=== PATIENT | female | born 1985 | race Two or more races ===

== ENCOUNTER 2020-10-26 20:10 | Inpatient (IN) | payer MEDICAID ==
[2020-10-26] MEDS ORDERED: Lactated Ringers 1,000 ML IV ONE ×2 (20:22→21:09)
[2020-10-26] MEDS ORDERED: HYDROmorphone 0.5 MG/0.5 ML Syringe IVPUSH ONE ×2 (20:23→22:05)
[2020-10-26] MEDS ORDERED: Ondansetron 4 MG/2 ML SDV IVPUSH ONE (20:23)
[2020-10-26] MEDS ORDERED: Acetaminophen 650 MG Supp RECTAL ONE (20:24)
--- NOTE | 2020-10-26 20:30 | EDM.PDOC ---
ED HPI GENERAL MEDICAL PROBLEM - General Chief Complaint: Abdominal Pain Stated Complaint: [facility] Time Seen by Provider: 10/26/20 20:15 Source of Information: Reports: Patient, EMS, Old Records History Limitations: Reports: No Limitations - History of Present Illness INITIAL COMMENTS - FREE TEXT/NARRATIVE: 35 yo , non-Syriac speaking female presents via EMS with RLQ abdominal pain, fever, and vomiting. Was seen in the [facility] on 10/19 for what is presumed to be the beginning of this illness. Her work up that day including blood work was negative. She was given amoxicillin per patient for "a fever". When EMS arrived she was with 4 minor children and no other adults. She went back to the clinic today and her WBC ct had risen to 13K and her temp was 101.7F. An abdominal X-ray was negative. A strep test today was positive. Covid vaccine on 10/15. Negative Covid in clinic today. Onset: Gradual, Unknown/Unsure Duration: Day(s):, Getting Worse Location: Reports: Abdomen Quality: Reports: Ache Severity: Severe Improves with: Reports: None Worsens with: Reports: Other (time) Context: Reports: Other (See HPI) Associated Symptoms: Reports: Fever/Chills, Nausea/Vomiting Treatments TIER OVER: Reports: Other (see below) (amox) RLQ Pain Score (Numeric/FACES): 10 - Related Data Allergies Allergy/AdvReac Type Severity Reaction Status Date / Time aspirin Allergy Rash Verified 10/26/20 21:01 Penicillins Allergy Other Verified 10/26/20 21:01 Home Meds: Home Meds Amoxicillin 500 mg PO BID 10/26/20 [History] Ferrous Sulfate [Iron] 325 mg PO BID 10/26/20 [History] norethindrone ac-eth estradioL [Bhavin 21 1-20 Tablet] 1 tab PO DAILY 10/26/20 [History] ED ROS GENERAL - Review of Systems Review Of Systems: See Below Constitutional: Reports: Fever, Chills HEENT: Reports: No Symptoms Respiratory: Reports: No Symptoms Cardiovascular: Reports: No Symptoms GI/Abdominal: Reports: Abdominal Pain, Anorexia, Nausea, Vomiting. Denies: Black Stool, Bloody Stool, Constipation, Diarrhea, Distension, Hematemesis, Melena : Reports: No Symptoms Musculoskeletal: Reports: No Symptoms Skin: Reports: No Symptoms Neurological: Reports: No Symptoms ED EXAM, GI/ABD - Physical Exam Exam: See Below Exam Limited By: No Limitations General Appearance: Alert, Moderate Distress Eyes: Bilateral: Normal Appearance Ears: Normal External Exam, Normal Canal, Hearing Grossly Normal Nose: Normal Inspection, No Blood Throat/Mouth: Normal Inspection, Normal Lips, Normal Oropharynx, Normal Voice, No Airway Compromise Head: Atraumatic, Normocephalic Neck: Normal Inspection Respiratory/Chest: No Respiratory Distress, Lungs Clear, Normal Breath Sounds, No Accessory Muscle Use Cardiovascular: Regular Rate, Rhythm, No Edema, Tachycardia GI/Abdominal Exam: Soft, No Distention, Tender (RLQ), Abnormal Bowel Sounds (decreased). No: Normal Bowel Sounds, Non-Tender, Distended Extremities: Normal Inspection, Normal Range of Motion, Non-Tender, No Pedal Edema Neurological: Alert, Oriented, CN II-XII Intact, Normal Cognition, No Motor/Sensory Deficits Psychiatric: Normal Affect, Normal Mood Skin Exam: Warm, Dry, Intact, Normal Color, No Rash Course - Vital Signs Text/Narrative:: Dr. Quarles called @ 2307h Last Recorded V/S: Last Vital Signs Temp 38.3 C H 10/26/20 22:33 Pulse 97 10/26/20 22:59 Resp 20 10/26/20 22:59 BP 104/50 L 10/26/20 22:59 Pulse Ox 99 10/26/20 22:59 - Orders/Labs/Meds Orders: Active Orders 24 hr Category Date Time Status Cardiac Monitoring [RC] .As Directed Care 10/26/20 20:24 Active Chest 1V Frontal [CR] Stat Exams 10/26/20 22:52 Ordered CULTURE BLOOD [BC] Stat Lab 10/26/20 20:32 Received CULTURE BLOOD [BC] Stat Lab 10/26/20 20:51 Received REFLEX LACTIC ACID YES OR NO [CHEM] Routine Lab 10/26/20 20:50 Received Sodium Chloride 0.9% [Normal Saline] 1,000 ml Med 10/26/20 23:15 Ordered IV ASDIRECTED Sodium Chloride 0.9% [Normal Saline] 70 ml Med 10/26/20 21:45 Active IV ASDIRECTED cefTRIAXone [Rocephin] 1 gm Med 10/26/20 23:08 Ordered Sodium Chloride 0.9% [Normal Saline] 50 ml IV ONETIME Medication Orders Sodium Chloride (Normal Saline) 70 mls @ 3.5 mls/sec IV ASDIRECTED [facility] Last Admin: 10/26/20 22:22 Dose: 3 mls/sec Documented by: MELANIA Ceftriaxone Sodium 1 gm/ (Sodium Chloride) 50 mls @ 100 mls/hr IV ONETIME ONE Stop: 10/26/20 23:37 Sodium Chloride (Normal Saline) 1,000 mls @ 150 mls/hr IV ASDIRECTED [facility] Labs: Laboratory Tests 10/26/20 10/26/20 10/26/20 Range/Units 20:22 20:22 20:40 WBC 14.7 H (4.5-11.0) K/uL RBC 4.70 (3.30-5.50) M/uL Hgb 11.5 L (12.0-15.0) g/dL Hct 35.4 L (36.0-48.0) % MCV 75 L (80-98) fL MCH 25 L (27-31) pg MCHC 33 (32-36) % Plt Count 251 (150-400) K/uL Sodium 140 (140-148) mmol/L Potassium 3.8 (3.6-5.2) mmol/L Chloride 102 (100-108) mmol/L Carbon Dioxide 22 (21-32) mmol/L Anion Gap 16.0 H (5.0-14.0) mmol/L BUN 14 (7-18) mg/dL Creatinine 1.2 H (0.6-1.0) mg/dL Est Cr Clr Drug Dosing 46.55 mL/min Estimated GFR (MDRD) 51 L (>60) Glucose 136 H (74-106) mg/dL Lactic Acid (0.4-2.0) mmol/L Calcium 9.1 (8.5-10.1) mg/dL Total Bilirubin 0.4 (0.2-1.0) mg/dL AST 15 (15-37) U/L ALT 26 (12-78) U/L Alkaline Phosphatase 87 (46-116) U/L Total Protein 7.7 (6.4-8.2) g/dL Albumin 3.7 (3.4-5.0) g/dL Globulin 4.0 H (2.3-3.5) g/dL Albumin/Globulin Ratio 0.9 L (1.2-2.2) HCG, Qual Negative Urine Color (YELLOW) Urine Appearance (CLEAR) Urine pH (5.0-8.0) Ur Specific [place] (1.008-1.030) Urine Protein (NEGATIVE) mg/dL Urine Glucose (UA) (NEGATIVE) mg/dL Urine Ketones (NEGATIVE) mg/dL Urine Occult Blood (NEGATIVE) Urine Nitrite (NEGATIVE) Urine Bilirubin (NEGATIVE) Urine Urobilinogen (0.2-1.0) EU/dL Ur Leukocyte Esterase (NEGATIVE) Urine RBC (0-5) Urine WBC (0-5) Ur Epithelial Cells Amorphous Sediment Urine Bacteria Urine Mucus 10/26/20 10/26/20 Range/Units 20:49 22:17 WBC (4.5-11.0) K/uL RBC (3.30-5.50) M/uL Hgb (12.0-15.0) g/dL Hct (36.0-48.0) % MCV (80-98) fL MCH (27-31) pg MCHC (32-36) % Plt Count (150-400) K/uL Sodium (140-148) mmol/L Potassium (3.6-5.2) mmol/L Chloride (100-108) mmol/L Carbon Dioxide (21-32) mmol/L Anion Gap (5.0-14.0) mmol/L BUN (7-18) mg/dL Creatinine (0.6-1.0) mg/dL Est Cr Clr Drug Dosing mL/min Estimated GFR (MDRD) (>60) Glucose (74-106) mg/dL Lactic Acid 3.9 H (0.4-2.0) mmol/L Calcium (8.5-10.1) mg/dL Total Bilirubin (0.2-1.0) mg/dL AST (15-37) U/L ALT (12-78) U/L Alkaline Phosphatase (46-116) U/L Total Protein (6.4-8.2) g/dL Albumin (3.4-5.0) g/dL Globulin (2.3-3.5) g/dL Albumin/Globulin Ratio (1.2-2.2) HCG, Qual Urine Color Yellow (YELLOW) Urine Appearance Clear (CLEAR) Urine pH 8.5 H (5.0-8.0) Ur Specific [place] 1.020 (1.008-1.030) Urine Protein Negative (NEGATIVE) mg/dL Urine Glucose (UA) Negative (NEGATIVE) mg/dL Urine Ketones Negative (NEGATIVE) mg/dL Urine Occult Blood Negative (NEGATIVE) Urine Nitrite Negative (NEGATIVE) Urine Bilirubin Negative (NEGATIVE) Urine Urobilinogen 0.2 (0.2-1.0) EU/dL Ur Leukocyte Esterase Negative (NEGATIVE) Urine RBC 0-5 (0-5) Urine WBC 0-5 (0-5) Ur Epithelial Cells Few Amorphous Sediment Not seen Urine Bacteria Moderate Urine Mucus Not seen Meds: Medications Generic Name Dose Route Start Last Admin Trade Name Freq PRN Reason Stop Dose Admin Sodium Chloride 70 mls @ 3.5 mls/sec 10/26/20 21:45 10/26/20 22:22 Normal Saline IV 3 mls/sec ASDIRECTED LIOR Administration Ceftriaxone Sodium 1 gm/ 50 mls @ 100 mls/hr 10/26/20 23:08 Sodium Chloride IV 10/26/20 23:37 ONETIME ONE Sodium Chloride 1,000 mls @ 150 mls/hr 10/26/20 23:15 Normal Saline IV ASDIRECTED LIOR Discontinued Medications Generic Name Dose Route Start Last Admin Trade Name Freq PRN Reason Stop Dose Admin Acetaminophen 650 mg 10/26/20 20:24 10/26/20 22:04 Acetaminophen 650 Mg Supp RECTAL 10/26/20 20:25 650 mg NOW ONE Administration Hydromorphone HCl 0.5 mg 10/26/20 20:23 10/26/20 22:04 Hydromorphone 0.5 Mg/0.5 Ml Syringe IVPUSH 10/26/20 20:24 0.5 mg ONETIME ONE Administration Hydromorphone HCl 0.5 mg 10/26/20 22:05 10/26/20 22:18 Hydromorphone 0.5 Mg/0.5 Ml Syringe IVPUSH 10/26/20 22:06 0.5 mg ONETIME ONE Administration Lactated Ringer's 1,000 mls @ 1,000 mls/hr 10/26/20 20:22 10/26/20 20:20 Ringers, Lactated IV 10/26/20 21:21 1,000 mls/hr BOLUS ONE Administration Lactated Ringer's 1,000 mls @ 1,000 mls/hr 10/26/20 21:09 10/26/20 22:09 Ringers, Lactated IV 10/26/20 22:08 1,000 mls/hr BOLUS ONE Administration Iopamidol 72 ml 10/26/20 21:37 10/26/20 22:22 Iopamidol 612 Mg/Ml 500 Ml Multipack Bottle IV 10/26/20 21:38 72 ml ONETIME ONE Administration Ondansetron HCl 4 mg 10/26/20 20:23 10/26/20 22:04 Ondansetron 4 Mg/2 Ml Sdv IVPUSH 10/26/20 20:24 4 mg ONETIME ONE Administration Sodium Chloride 10 ml 10/26/20 21:37 10/26/20 22:22 Sodium Chloride 0.9% 10 Ml Syringe FLUSH 10/26/20 21:38 10 ml ONETIME ONE Administration - Radiology Interpretation Free Text/Narrative:: CT abd/pelvis with IV contrast- IMPRESSION: Nothing seen to explain the patient`s right lower quadrant pain and elevated white blood cell count. The fluid-filled appendix is normal in appearance with no sign of dilatation and no sign of any periappendiceal inflammatory reaction. Normal CT of the abdomen with contrast. CT of the pelvis shows heterogeneous low density scattered throughout the mildly enlarged uterus consistent with diffuse fibroid degeneration. Small coarse calcification of the left tip of the fundus. Small amount of free fluid in the cul-de-sac on the right, nonspecific. Please note that all CT scans at this facility use dose modulation, iterative reconstruction, and/or weight-based dosing when appropriate to reduce radiation dose to as low as reasonably achievable. Dictated by Rehan Wade MD @ 10/26/2020 10:50:35 PM CXR-neg CT Results Date: 10/26/20 CT Results Time: 22:52 Departure - Departure Time of Disposition: 23:20 Disposition: Admitted As Inpatient 65 Condition: Serious Clinical Impression: Elevated lactic acid level, RLQ abdominal pain Fever Qualifiers: Fever type: unspecified Qualified Code(s): R50.9 - Fever, unspecified Elevated WBC count Qualifiers: Leukocytosis type: unspecified Qualified Code(s): D72.829 - Elevated white blood cell count, unspecified - Discharge Information *PRESCRIPTION DRUG MONITORING PROGRAM REVIEWED*: Not Applicable *COPY OF PRESCRIPTION DRUG MONITORING REPORT IN PATIENT KATHIE: Not Applicable Referrals: PCP,None [Primary Care Provider] - Forms: ED Department Discharge Sepsis Event Note (ED) - Focused Exam Vital Signs: Vital Signs Temp Pulse Resp BP Pulse Ox 10/26/20 22:59 97 20 104/50 L 99 10/26/20 22:33 38.3 C H 106 H 20 117/74 98 10/26/20 22:07 38.8 C H 109 H 16 100/55 L 97 10/26/20 21:12 113 H 13 111/68 99 10/26/20 21:05 38.4 C H 145 H 15 142/79 H 100 10/26/20 20:42 126 H 14 108/71 99 10/26/20 20:19 38.4 C H 145 H 15 142/79 H 100 - My Orders Last 24 Hours: My Active Orders 10/26/20 20:24 Cardiac Monitoring [RC] .As Directed 10/26/20 20:32 CULTURE BLOOD [BC] Stat 10/26/20 20:50 REFLEX LACTIC ACID YES OR NO [CHEM] Routine 10/26/20 20:51 CULTURE BLOOD [BC] Stat 10/26/20 21:45 Sodium Chloride 0.9% [Normal Saline] 70 ml IV ASDIRECTED 10/26/20 22:52 Chest 1V Frontal [CR] Stat 10/26/20 23:08 cefTRIAXone [Rocephin] 1 gm Sodium Chloride 0.9% [Normal Saline] 50 ml IV ONETIME 10/26/20 23:15 Sodium Chloride 0.9% [Normal Saline] 1,000 ml IV ASDIRECTED - Assessment/Plan Last 24 Hours: My Active Orders 10/26/20 20:24 Cardiac Monitoring [RC] .As Directed 10/26/20 20:32 CULTURE BLOOD [BC] Stat 10/26/20 20:50 REFLEX LACTIC ACID YES OR NO [CHEM] Routine 10/26/20 20:51 CULTURE BLOOD [BC] Stat 10/26/20 21:45 Sodium Chloride 0.9% [Normal Saline] 70 ml IV ASDIRECTED 10/26/20 22:52 Chest 1V Frontal [CR] Stat 10/26/20 23:08 cefTRIAXone [Rocephin] 1 gm Sodium Chloride 0.9% [Normal Saline] 50 ml IV ONETIME 10/26/20 23:15 Sodium Chloride 0.9% [Normal Saline] 1,000 ml IV ASDIRECTED
[2020-10-26] MEDS ORDERED: Sodium Chloride 0.9% 10 ML Syringe FLUSH ONE (21:37)
[2020-10-26] MEDS ORDERED: Iopamidol 612 MG/ML 500 ML Multipack Bottle IV ONE (21:37)
--- NOTE | 2020-10-26 22:52 | CRLCT ---
INDICATION: Right lower quadrant pain. Elevated white blood cell count. COMPARISON: None available TECHNIQUE: CT examination of the abdomen and pelvis was performed with the uneventful intravenous administration of 72 cc of Isovue-300 while 3 mm thick axial sections were obtained from the lung bases through the pubic symphysis. Oral contrast was not administered. Please note that all CT scans at this facility use dose modulation, iterative reconstruction, and/or weight-based dosing when appropriate to reduce radiation dose to as low as reasonably achievable. FINDINGS: In the abdomen, the liver, spleen, pancreas, and adrenals are normal in appearance. The kidneys are normal in appearance. The gallbladder is normal in appearance. The abdominal aorta is normal in caliber with no sign of dilatation. There is no sign of retroperitoneal mass or adenopathy. The stomach, loops of small bowel, and colon in the abdomen are normal in appearance. In the pelvis, the fluid-filled appendix is normal in appearance with no sign of inflammatory process. It measures 5 millimeters in caliber and there is no sign of any periappendiceal inflammatory reaction. The loops of small bowel and colon in the pelvis are normal in appearance. The uterus is heterogeneous in density with a coarse calcification in the anterior left distal fundus, findings consistent with fibroid degeneration. The uterus is mildly enlarged, measuring 11.3 x 5.3 x 5.4 centimeters. The ovaries are normal in appearance. There is a small amount of free fluid in the cul-de-sac on the right, nonspecific. The urinary bladder is normal in appearance. There is no sign of pelvic or inguinal mass or adenopathy. There is no sign of free air or free fluid in the abdomen. There is no sign of free air or extraluminal air in the pelvis. There is mild patchy density in the posterior lung bases consistent with atelectasis. The lung bases are otherwise clear. The osseous structures are normal in appearance for the patient`s age. IMPRESSION: Nothing seen to explain the patient`s right lower quadrant pain and elevated white blood cell count. The fluid-filled appendix is normal in appearance with no sign of dilatation and no sign of any periappendiceal inflammatory reaction. Normal CT of the abdomen with contrast. CT of the pelvis shows heterogeneous low density scattered throughout the mildly enlarged uterus consistent with diffuse fibroid degeneration. Small coarse calcification of the left tip of the fundus. Small amount of free fluid in the cul-de-sac on the right, nonspecific. Please note that all CT scans at this facility use dose modulation, iterative reconstruction, and/or weight-based dosing when appropriate to reduce radiation dose to as low as reasonably achievable. Dictated by Rehan Wade MD @ 10/26/2020 10:50:[address] Rehan Wade @ Oct 26 2020 10:50PM
[2020-10-26] MEDS ORDERED: cefTRIAXone 1 GM in Sodium Chloride 0.9% 50 ML IV ONE (23:08)
[2020-10-26] MEDS ORDERED: Sodium Chloride 0.9% 1,000 ML IV SCH (23:15)
--- NOTE | 2020-10-26 23:34 | CRLCR ---
INDICATION: Sepsis TECHNIQUE: Portable semiupright AP view of the chest COMPARISON: None FINDINGS: The lungs are clear. There is no sizable pleural effusion or pneumothorax. The cardiomediastinal silhouette is normal. The visualized osseous structures are unremarkable. IMPRESSION: No acute intrathoracic process. Dictated by Betty Gordon MD @ 10/26/2020 11:32:[address] Betty Gordon @ Oct 26 2020 11:32PM
[2020-10-27] MEDS: Ketorolac 30 MG/ML SDV IVPUSH PRN ×2 (01:10→11:21)
[2020-10-27] MEDS ORDERED: Azithromycin 250 MG Tab PO ONE (01:14)
[2020-10-27] MEDS ORDERED: Sodium Chloride 0.9% 1,000 ML IV SCH (03:45)
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
--- NOTE | 2020-10-27 06:27 | PN ---
DATE OF SERVICE: 10/27/2020 SUBJECTIVE: A 35-year-old, multigravid female was admitted in the late evening hours yesterday with a day long history of abdominal pain as well as noted febrile presentation. Through the nighttime hours, IV antibiotics, fluid hydration, and IV Toradol, was admitted for management of presumptive pelvic infection and accompanying fever. She is resting comfortably. Denying current abdominal pain. She is taking sips of water well. She has had no further complaints of nausea. Voiding with increased frequency secondary to IV fluids. OBJECTIVE: VITAL SIGNS: Temperature now 37.2 degrees centigrade, pulse 114, blood pressure 119/66, respiratory rate 20, with O2 saturations 98% on room air. Output 1000 mL, intake 120 oral intake plus IV fluids. ABDOMEN: Remains nondistended without peritoneal signs. Moderately tender to deep palpation in the right lower quadrant. She has active bowel sounds. SKIN: Warm, pink, and dry. LABORATORY DATA: Blood and pelvic cultures are pending at this point. IMPRESSION AND PLAN: Febrile presentation with right lower quadrant abdominal pain, suspect pelvic inflammatory disease. We will continue with IV fluids, dietary intake as tolerated, and antibiotic therapy for both gram-negative as well as chlamydial and GC organisms. Does have Toradol available for p.r.n. use. Allow voiding as required. Activity with standby assistance with IV parenteral therapy being administered. Continue to monitor in inpatient setting. Sudhir Quarles MD /[id number]
[2020-10-27] MEDS ORDERED: Azithromycin 250 MG Tab PO SCH ×2 (09:00→21:00)
[2020-10-27] MEDS: cefOXitin 2 GM in Sodium Chloride 0.9% 50 ML IV SCH ×2 (10:30→18:34)
[2020-10-27] MEDS: Acetaminophen 325 MG Tab PO PRN ×2 (14:16→20:32)
[2020-10-28] MEDS ORDERED: cefOXitin 2 GM in Sodium Chloride 0.9% 50 ML IV SCH (00:45)
[2020-10-28] MEDS: Ketorolac 30 MG/ML SDV IVPUSH PRN (02:49)
[2020-10-28] MEDS: Acetaminophen 325 MG Tab PO PRN (02:49)
[2020-10-28] MEDS: cefOXitin 2 GM in Sodium Chloride 0.9% 50 ML IV SCH ×2 (02:49→10:11)
[2020-10-28] MEDS ORDERED: Azithromycin 250 MG Tab PO SCH (09:00)
[2020-10-28 10:01] VITALS: BP 99/57; PULSE 72
--- NOTE | 2020-10-28 11:39 | PCM.DCSUM1 ---
Discharge Summary - Hospital Course Brief History: Healthy 35-year-old female who presented with several days of worsening lower abdominal pain and fever. She is admitted for management of presumed pelvic inflammatory disease. Diagnosis: Stroke: No - Discharge Data Discharge Date: 10/28/20 Discharge Disposition: Home, Self-Care 01 Condition: Good - Referral to Home Health Primary Care Physician: PCP None - Discharge Diagnosis/Problem(s) (1) Pelvic inflammatory disease SNOMED Code(s): 478972828 ICD Code: N73.9 - FEMALE PELVIC INFLAMMATORY DISEASE, UNSPECIFIED Status: Acute Current Visit: Yes - Patient Summary/Data Hospital Course: [place] presented to the emergency room with fever, lower abdominal pain and nausea. In the emergency room she had fever, tachycardia and lactic acidosis consistent with sepsis. CT scan of the abdomen and pelvis was unremarkable. The patient did receive IV fluids and broad-spectrum antibiotics to cover abdominal organisms. The patient was admitted to the hospital. At the time of hospital admission a pelvic exam was performed. There was a fair amount of adnexal tenderness and pelvic inflammatory disease was suspected. Antibiotics were transitioned to a azithromycin and cefoxitin. She received IV fluids overnight. Her lactic acidosis normalized quickly with treatment provided in the emergency room in the early portion of the hospital stay. We have seen steady improvement in both her fever curve as well as her abdominal pain. She has been tolerating a regular diet. Pain has been controlled with combination of acetaminophen and Toradol. Her blood cultures have been negative. We are still waiting for the gonococcal and chlamydial test to return and that may be several days yet. Anaerobic cultures are pending at this time as well but there is been no growth to date. Patient feels well and is interested in going home. My suspicion for pelvic inflammatory disease is high enough that we will continue to treat this after hospital discharge. She will be on doxycycline and metronidazole for a total of 11 days to complete a total of 2 weeks of treatment when hospital antibiotic days are included. She will be following up with her primary care early next week. - Patient Instructions Diet: Regular Diet as Tolerated Activity: As Tolerated Activity, Other: Return to work without restrictions on 11/01/20 Showering/Bathing: May Shower Notify Provider of: Fever, Increased Pain Other/Special Instructions: 1. You were in the hospital for management of pelvic inflammatory disease which is an infection of your reproductive organs and genital tract. We did not determine a causative bacteria as of yet. Your condition is improving with antibiotic therapy. I do recommend additional antibiotic therapy after hospital discharge to complete treatment for the infection. Please take both doxycycline 100 mg and metronidazole 500 mg twice daily with food for 10 days. Your first dose outside of the hospital will be due tonight. To help control your pain you can use acetaminophen 650 mg every 4 hours or ibuprofen 600 mg every 6 hours. You may alternate these medications to provide overlapping pain coverage. 2. Please follow-up in the clinic next week to ensure that your condition continues to improve or sooner if your symptoms worsen prior to that. - Discharge Plan *PRESCRIPTION DRUG MONITORING PROGRAM REVIEWED*: Not Applicable *COPY OF PRESCRIPTION DRUG MONITORING REPORT IN PATIENT KATHIE: Not Applicable Prescriptions/Med Rec: Doxycycline Monohydrate 100 mg PO BID #21 capsule metroNIDAZOLE [Metronidazole] 500 mg PO BID #21 tablet Home Medications: Home Meds Amoxicillin 500 mg PO BID 10/26/20 [History] Ferrous Sulfate [Iron] 325 mg PO BID 10/26/20 [History] norethindrone ac-eth estradioL [Bhavin 21 1-20 Tablet] 1 tab PO DAILY 10/26/20 [History] Doxycycline Monohydrate 100 mg PO BID #21 capsule 10/28/20 [Rx] metroNIDAZOLE [Metronidazole] 500 mg PO BID #21 tablet 10/28/20 [Rx] Oxygen Therapy Mode: Room Air Patient Handouts: Pelvic Inflammatory Disease, [id number] Referrals: Karli Montes CNM [[facility]] - 11/05/20 (Follow-up hospital stay for pelvic pain with fever) - Discharge Summary/Plan Comment DC Time >30 min.: No - Patient Data Vitals - Most Recent: Last Vital Signs Temp 35.3 C L 10/28/20 07:00 Pulse 72 10/28/20 07:00 Resp 18 10/28/20 07:00 BP 99/57 L 10/28/20 07:00 Pulse Ox 98 10/28/20 03:00 Weight - Most Recent: 47.627 kg I&O - Last 24 hours: Intake & Output 10/27/20 10/28/20 10/28/20 22:59 06:59 14:59 Intake Total 1490 Output Total 525 Balance 965 Lab Results - Last 24 hrs: Laboratory Results - last 24 hr 10/28/20 10/28/20 10/28/20 Range/Units 05:30 05:30 05:30 WBC 12.9 H (4.5-11.0) K/uL RBC 4.23 (3.30-5.50) M/uL Hgb 9.9 L (12.0-15.0) g/dL Hct 32.7 L (36.0-48.0) % MCV 77 L (80-98) fL MCH 23 L (27-31) pg MCHC 30 L (32-36) % Plt Count 173 (150-400) K/uL Sodium 143 (140-148) mmol/L Potassium 4.1 (3.6-5.2) mmol/L Chloride 105 (100-108) mmol/L Carbon Dioxide 27 (21-32) mmol/L Anion Gap 11.1 (5.0-14.0) mmol/L BUN 8 (7-18) mg/dL Creatinine 0.9 (0.6-1.0) mg/dL Est Cr Clr Drug Dosing 62.07 mL/min Estimated GFR (MDRD) > 60 (>60) Glucose 99 (74-106) mg/dL Calcium 8.4 L (8.5-10.1) mg/dL HCG, Quant 0 (0-6) mIU/mL KENNY Results - Last 24 hrs: Microbiology 10/27/20 01:06 Anaerobic Culture - Preliminary Uterus - Other 10/26/20 20:51 Aerobic Blood Culture - Preliminary Blood - Arm, Right NO GROWTH AFTER 1 DAY Anaerobic Blood Culture - Preliminary NO GROWTH AFTER 1 DAY 10/26/20 20:32 Aerobic Blood Culture - Preliminary Blood - Arm, Right NO GROWTH AFTER 1 DAY Anaerobic Blood Culture - Preliminary NO GROWTH AFTER 1 DAY Med Orders - Current: Current Medications Acetaminophen (Acetaminophen 325 Mg Tab) 650 mg PO Q4H PRN PRN Reason: Fever Last Admin: 10/28/20 02:49 Dose: 650 mg Documented by: Azithromycin (Azithromycin 250 Mg Tab) 250 mg PO BEDTIME LIOR Stop: 11/01/20 21:01 Last Admin: 10/27/20 20:33 Dose: 250 mg Documented by: Cefoxitin Sodium 2 gm/ Sodium (Chloride) 50 mls @ 100 mls/hr IV Q8H LIOR Last Admin: 10/28/20 10:11 Dose: 100 mls/hr Documented by: Ketorolac Tromethamine (Ketorolac 30 Mg/Ml Sdv) 30 mg IVPUSH Q6H PRN PRN Reason: Pain Stop: 11/01/20 00:44 Last Admin: 10/28/20 02:49 Dose: 30 mg Documented by: Discontinued Medications Acetaminophen (Acetaminophen 650 Mg Supp) 650 mg RECTAL NOW ONE Stop: 10/26/20 20:25 Last Admin: 10/26/20 22:04 Dose: 650 mg Documented by: Azithromycin (Azithromycin 250 Mg Tab) 250 mg PO DAILY LIOR Stop: 11/02/20 09:01 Azithromycin (Azithromycin 250 Mg Tab) 500 mg PO DAILY LIOR Stop: 10/27/20 09:01 Azithromycin (Azithromycin 250 Mg Tab) 500 mg PO ONETIME ONE Stop: 10/27/20 01:15 Last Admin: 10/27/20 01:33 Dose: 500 mg Documented by: Hydromorphone HCl (Hydromorphone 0.5 Mg/0.5 Ml Syringe) 0.5 mg IVPUSH ONETIME ONE Stop: 10/26/20 20:24 Last Admin: 10/26/20 22:04 Dose: 0.5 mg Documented by: Hydromorphone HCl (Hydromorphone 0.5 Mg/0.5 Ml Syringe) 0.5 mg IVPUSH ONETIME ONE Stop: 10/26/20 22:06 Last Admin: 10/26/20 22:18 Dose: 0.5 mg Documented by: Lactated Ringer's (Ringers, Lactated) 1,000 mls @ 1,000 mls/hr IV BOLUS ONE Stop: 10/26/20 21:21 Last Admin: 10/26/20 20:20 Dose: 1,000 mls/hr Documented by: Lactated Ringer's (Ringers, Lactated) 1,000 mls @ 1,000 mls/hr IV BOLUS ONE Stop: 10/26/20 22:08 Last Admin: 10/26/20 22:09 Dose: 1,000 mls/hr Documented by: Sodium Chloride (Normal Saline) 70 mls @ 3.5 mls/sec IV ASDIRECTED [facility] Last Admin: 10/26/20 22:22 Dose: 3 mls/sec Documented by: Ceftriaxone Sodium 1 gm/ (Sodium Chloride) 50 mls @ 100 mls/hr IV ONETIME ONE Stop: 10/26/20 23:37 Last Admin: 10/26/20 23:51 Dose: 100 mls/hr Documented by: Sodium Chloride (Normal Saline) 1,000 mls @ 150 mls/hr IV ASDIRECTED [facility] Last Admin: 10/26/20 23:13 Dose: 150 mls/hr Documented by: Cefoxitin Sodium 2 gm/ Sodium (Chloride) 50 mls @ 100 mls/hr IV Q8H LIOR Sodium Chloride (Normal Saline) 1,000 mls @ 75 mls/hr IV ASDIRECTED [facility] Last Admin: 10/27/20 08:11 Dose: 75 mls/hr Documented by: Iopamidol (Iopamidol 612 Mg/Ml 500 Ml Multipack Bottle) 72 ml IV ONETIME ONE Stop: 10/26/20 21:38 Last Admin: 10/26/20 22:22 Dose: 72 ml Documented by: Ondansetron HCl (Ondansetron 4 Mg/2 Ml Sdv) 4 mg IVPUSH ONETIME ONE Stop: 10/26/20 20:24 Last Admin: 10/26/20 22:04 Dose: 4 mg Documented by: Sodium Chloride (Sodium Chloride 0.9% 10 Ml Syringe) 10 ml FLUSH ONETIME ONE Stop: 10/26/20 21:38 Last Admin: 10/26/20 22:22 Dose: 10 ml Documented by:
[2020-10-29 19:12] LABS: CHLAMYDIA TRACHOMATIS, NAA Negative (Negative); NEISSERIA GONORRHOEAE, NAA Negative (Negative)
== END 2020-10-28 12:30 | disposition home or self-care (01) | DRG 757 ==
LOC: JP.ED 20:10 → JP.ICU 23:27
PROVIDERS: ADMIT Family Medicine; ATTEND Internal Medicine
DX: N73.9 Female pelvic inflammatory disease, unspecified (principal); A41.9 Sepsis, unspecified organism; D50.9 Iron deficiency anemia, unspecified; D25.9 Leiomyoma of uterus, unspecified; Z79.899 Other long term (current) drug therapy; Z88.0 Allergy status to penicillin; Z88.6 Allergy status to analgesic agent
CPT/HCPCS: 36415; 71045; 74177; 80048; 80053; 81001; 83605; 84702; 84703; 85027; 87040; 87075; 87077; 87491; 87591; 96374; 96375; 96376; 99285-25; A9270-GY; J0694; J0696; J1170; J1885; J2405; J7030; J7120; Q9967

== ENCOUNTER 2021-08-05 16:25 | Emergency (ER) | payer MEDICAID ==
[2021-08-05] MEDS ORDERED: Sodium Chloride 0.9% 10 ML Syringe FLUSH PRN (17:11)
[2021-08-05] MEDS ORDERED: Lactated Ringers 1,000 ML IV ONE (17:11)
[2021-08-05] MEDS ORDERED: Ondansetron 4 MG/2 ML SDV IVPUSH ONE (17:11)
== END 2021-08-05 19:05 | disposition home or self-care (01) ==
LOC: JP.ED 16:25
DX: O21.9 Vomiting of pregnancy, unspecified (principal); Z88.8 Allergy status to other drugs, medicaments and biological substances; Z88.0 Allergy status to penicillin; Z3A.13 13 weeks gestation of pregnancy
CPT/HCPCS: 96374; 99282; 99283; J2405; J7120

== ENCOUNTER 2022-02-01 15:15 | Emergency (ER) | payer MEDICAID | END 2022-02-01 16:39 | disposition left against medical advice (07) | LOC: JP.ED 15:15 | DX: Z53.21 Procedure and treatment not carried out due to patient leaving prior to being seen by health care provider (principal) ==

== ENCOUNTER 2022-02-02 11:02 | Emergency (ER) | payer MEDICAID ==
[2022-02-02] MEDS ORDERED: cefTRIAXone 1 GM Vial IM ONE (12:25)
== END 2022-02-02 12:45 | disposition home or self-care (01) ==
LOC: JP.ED 11:02
DX: T81.40XA Infection following a procedure, unspecified, initial encounter (principal)
CPT/HCPCS: 99281; 99283